=== PATIENT | female | born 1955 | race Caucasian/White ===

== ENCOUNTER → 2017-04-26 16:47 | Outpatient (CLI) | payer OTHER ==
[2012-07-27 14:24] VITALS: BMI 38.5
== END | disposition home or self-care (01) ==
LOC: D.MAMMO 16:15
DX: Z12.31 Encounter for screening mammogram for malignant neoplasm of breast (principal)

== ENCOUNTER 2019-06-20 11:15 | Outpatient (CLI) | payer MEDICARE, OTHER ==
[2012-07-27 14:24] VITALS: BMI 38.5
== END 2019-06-20 11:45 | disposition home or self-care (01) ==
LOC: D.MAMMO 11:15
PROVIDERS: ATTEND Obstetrics & Gynecology
DX: Z12.31 Encounter for screening mammogram for malignant neoplasm of breast (principal)

== ENCOUNTER 2020-06-25 16:30 | Outpatient (CLI) | payer MEDICARE, OTHER ==
[2012-07-27 14:24] VITALS: BMI 38.5
== END 2020-06-25 23:59 | disposition home or self-care (01) ==
LOC: D.MAMMO 16:30
PROVIDERS: ATTEND Obstetrics & Gynecology
DX: Z12.31 Encounter for screening mammogram for malignant neoplasm of breast (principal)